=== PATIENT | male | born 1995 | race Caucasian/White ===

== ENCOUNTER → 2017-07-20 | Outpatient (CLI) | payer BC ==
[2017-07-20 16:43] LABS: SYNOVIAL FLUID APPEARANCE CLOUDY; SYNOVIAL FLUID COLOR YELLOW; SYNOVIAL FLUID MONONUC RELAT 15.5 %; SYNOVIAL FLUID POLYNUC RELAT 84.5 %
== END | disposition home or self-care (01) ==
LOC: C.LAB 14:44
DX: M25.561 Pain in right knee (principal)